=== PATIENT | male | born 1995 | race Caucasian/White ===

== ENCOUNTER → 2018-08-14 15:28 | Emergency (ER) | payer SELFPAY ==
[~2018-08-14 15:28] MED LIST: NS 0.9% 1000 ML* 1,000 ML IV ONE
--- NOTE | 2018-08-14 15:41 | ED ---
Substance Abuse/Use - HPI Summary HPI Summary: A 22 y/o male brought in by [employer] ambulance presents to [facility] with a chief complaint of substance abuse at about 14:30 08/14/18. The patient was found by friends in the back of the car unresponsive and cyanotic. He took 5 vicodin. Per EMS the patient was barely breathing and tachycardic. After given 2 narcan in the ambulance the patient's pupils changed to normal from pinpoint. In the ED the patient is feeling better. He denies SI. He denies any pain, rating his pain as 0/10. He denies any MHx. He states that he also takes suboxone and reports marijuana use. He admits to smoking and claims that this is his first OD. He has a Hx of opiate use with heroine, percocets and vicodins. - History Of Current Complaint Stated Complaint: POSS OVERDOSE Time Seen by Provider: 08/14/18 15:31 Hx Obtained From: Patient Onset/Duration of Drug/ETOH Abuse: Hours Ingestion History: Type/Name Of Drug - vicodin, Amount Ingested - 5, Approximate Time Of Ingestion - TRAVEL AGENT about 14:20 Overdose Characteristics: Oral Timing Of Abuse: Intermittent Severity Initially: Severe Severity Currently: Mild Aggravating Factor(s): Nothing Alleviating Factor(s): Medication - given narcan Associated Signs And Symptoms: Shortness Of Breath - when found by EMS, not currently - Allergies/Home Medications Allergies/Adverse Reactions: Allergies Allergy/AdvReac Type Severity Reaction Status Date / Time No Known Allergies Allergy Verified 08/14/18 15:42 PMH/Surg Hx/FS Hx/Imm Hx Endocrine/Hematology History: Denies: Hx Diabetes Cardiovascular History: Denies: Hx Hypercholesterolemia, Hx Hypertension - Surgical History Surgery Procedure, Year, and Place: Sinus surgery - Family History Known Family History: Negative: Hypertension, Diabetes, Other - HLD - Social History Alcohol Use: Occasionally Hx Substance Use: Yes Substance Use Type: Reports: Marijuana, Prescribed Hx Tobacco Use: Yes Smoking Status (MU): Light Every Day Tobacco Smoker Review of Systems Negative: Fever Negative: Shortness Of Breath - but patient had SOB when found by EMS Neurological: Other - Positive: patient is responsive in the ED Psychological: Other - Negative: SI Positive: Other - Positive: OD All Other Systems Reviewed And Are Negative: Yes Physical Exam - Summary Physical Exam Summary: VITAL SIGNS: Reviewed. GENERAL: Patient is a well-developed and nourished MALE who is lying comfortable in the stretcher. Patient is not in any acute respiratory distress. HEAD AND FACE: No signs of trauma. No ecchymosis, hematomas or skull depressions. No sinus tenderness. EYES: PERRLA, EOMI x 2, No injected conjunctiva, no nystagmus. EARS: Hearing grossly intact. Ear canals and tympanic membranes are within normal limits. MOUTH: Oropharynx within normal limits. NECK: Supple, trachea is midline, no adenopathy, no JVD, no carotid bruit, no c- spine tenderness, neck with full ROM. CHEST: Symmetric, no tenderness at palpation LUNGS: Clear to auscultation bilaterally. No wheezing or crackles. CVS: Regular rate and rhythm, S1 and S2 present, no murmurs or gallops appreciated. ABDOMEN: Soft, non-tender. No signs of distention. No rebound no guarding, and no masses palpated. Bowel sounds are normal. EXTREMITIES: FROM in all major joints, no edema, no cyanosis or clubbing. NEURO: Alert and oriented x 3. No acute neurological deficits. Speech is normal and follows commands. SKIN: Dry and warm Triage Information Reviewed: Yes Vital Signs Reviewed: Yes Diagnostics - Laboratory Result Diagrams: 08/14/18 15:55 08/14/18 15:55 Lab Statement: Any lab studies that have been ordered have been reviewed, and results considered in the medical decision making process. - EKG 15:47 Cardiac Rate: NL - 80 bpm EKG Rhythm: Sinus Rhythm Summary of EKG Findings: no ST elevations Re-Evaluation - Re-Evaluation First Eval Re-Evaluation Time: 17:05 Change: Improved Comment: Patient is ready for discharge. Course/Dx - Course Assessment/Plan: A 22 y/o male brought in by [employer] ambulance presents to [facility] with a chief complaint of substance abuse at about 14:30 08/14/18. The patient was found by friends in the back of the car unresponsive and cyanotic. He took 5 vicodin. Per EMS the patient was barely breathing and tachycardia. After given 2 narcan in the ambulance the patient's pupils changed to normal from pinpoint. In the ED the patient is feeling better. He denies SI. He denies any pain, rating his pain as 0/10. He denies any MHx. He states that he also takes suboxone and reports marijuana use. He admits to smoking and claims that this is his first OD. He has a Hx of opiate use with heroine, percocets and vicodins. Blood work without any significant abnormality except for WBCs of 15.1, glucose 165,. Urinalysis is negative for UTI. Urine toxicology positive for opiates and marijuana. In the arrival to the emergency department the patient is alert and oriented 3. The patient was given Ativan 2 mg of Narcan had not the patient is back to his baseline. In the ED course the patient was observed for approximately 2 hours and the patient continues to be admitted and oriented 3 therefore the patient will be discharged home with follow-up with primary care physician. The patient will be discharged with his friends. Patient is hemodynamically stable, alert and oriented 3. The patient is able to tolerate by mouth without any nausea and vomiting. The patient is ambulating with a good steady walk and he seems to be sober. - Diagnoses Provider Diagnoses: Overdose of opiate or related narcotic Discharge - Sign-Out/Discharge Documenting (check all that apply): Patient Departure - DC - Discharge Plan Condition: Stable Disposition: HOME Referrals: [facility] [place] [facility]FERRAL [Outside] - 3 Days Additional Instructions: Return to the ED for any new or worsening symptoms. - Billing Disposition and Condition Condition: STABLE Disposition: Home - Attestation Statements Document Initiated by Qing: Yes Documenting Scribe: Angel Grimm Provider For Whom Qing is Documenting (Include Credential): Chan Zavala MD Scribe Attestation: Angel Mccartney scribed for Chan Zavala MD on 08/14/18 at 2101. Scribe Documentation Reviewed: Yes Provider Attestation: The documentation as recorded by the Angel edwards accurately reflects the service I personally performed and the decisions made by me, Chan Zavala MD Status of Scribpatrice Document: Viewed
[2018-08-14 16:12] LABS: ABS Basophils 0 10^3/ul (0-0.2); ABS Eosinophils 0 10^3/ul (0-0.6); ABS Lymphocytes 1.5 10^3/ul (1.0-4.8); ABS Monocytes 0.9 10^3/ul (0-0.8); ABS Neutrophils 12.7 10^3/ul (1.5-7.7); ABS Nucleated RBC 0 10^3/ul; Eosinophil % 0.3 %; Hematocrit 46 % (42-52); Hemoglobin 15.7 g/dl (14.0-18.0); Lymphocyte % 9.7 %; Mean Corpuscular HGB Conc 34 g/dl (31-36); Mean Corpuscular Hemoglobin 30 pg (27-31); Mean Corpuscular Volume 88 fL (80-94); Mean Platelet Volume 7.4 fL (7.4-10.4); Nucleated Red Blood Cells % 0.2; Platelet Count 280 10^3/ul (150-450); Red Blood Count 5.24 10^6/ul (4.00-5.40); Red Cell Distribution Width 14 % (10.5-15); White Blood Count 15.1 10^3/ul (3.5-10.8)
[2018-08-14 16:26] LABS: EGFR Non-African American 97.7 (>60)
[2018-08-14 16:29] LABS: Urine Appearance Turbid; Urine Blood Negative (Negative); Urine Color Yellow; Urine Ketones Negative (Negative); Urine Protein Negative (Negative); Urine Urobilinogen Negative (Negative)
[2018-08-14 17:32] VITALS: BP 120/63
== END | disposition home or self-care (01) ==
LOC: ED 15:28
DX: T40.601A Poisoning by unspecified narcotics, accidental (unintentional), initial encounter (principal); Y92.9 Unspecified place or not applicable; Z72.0 Tobacco use
CPT/HCPCS: 36415; 80053; 80307; 80320; 80329; 81003; 85025; 93005; 96360; 99283; G0480